=== PATIENT | male | born 1965 | race African-American/Black ===

== ENCOUNTER → 2017-01-31 | Day surgery (SDC) | payer OTHER ==
[~2017-01-31] VITALS: Ht 175.3 cm; Wt 89.8 kg
[~2017-01-31] MED LIST: ASPIRIN EC81 M1 PO; CRESTOR; DILTIAZEM; FARXIGA; GLIPIZIDE; METFORMIN HCL1000 M1 PO; MICARDIS HCT 81 EAC1 PO; PERCOCET 5-3251 EACH PO; SYMBICORT 16010.2 GM INH; VICTOZA 2-0.6 MG/0.1
--- NOTE | 2017-01-31 11:52 | Operative Report ---
Operative/Inv Procedure Report Surgery Date: 01/31/17 Name of Procedure: right ureteroscopy with laser lithotripsy, stent placement Pre-Operative Diagnosis: right kidney stone Post-Operative Diagnosis: same Estimated Blood Loss: less than 50ml Surgeon/Automatic Corn Grinder Operator: IMANI PLASCENCIA MD Anesthesia: laryngeal mask airway Drains: 6x26cm stent Specimens: stone fragments Complications: none Condition: stable Operative Indication: right kidney stone with renal colic Operative/Procedure Note Note: 51yo male with a hx of right kidney stone. He wanted to have it addressed osito. Discussed the options of ESWL as well as URS with laser lithotripsy. Explained the risks, benefits and alternatives of each procedure. Answered all questions. Patient was taken to the operating room and placed in the supine position. Time out was performed. IV antibiotics were infused. He was placed into the dorsal lithotomy position and prepped and draped in the standard sterile fashion. A cystoscopy was performed and the right side was cannulated with a sensor guidewire followed by a super stiff wire. A dark [place] stone looking object with a musocal tail was seen in the bladder. This was grasped and removed and sent to pathology. It was not certain whether this was a stone identified on the CT scan so the ureteroscopy was still performed. A 35cm ureteral access sheath was placed over the superstiff wire. A flexible ureteroscope was placed and the calyces were examined sequentially from the upper to lower poles. The anatomy was unusual. The kidney stone was not identified. Retrograde pyelogram was performed to ensure the anatomy was delineated. No stones were seen in the calyces and no filling defect on flouroscopy. A 6x26 cm stent was left in place using the sensor wire. The stent was placed using the sensor wire. Flouroscopy showed the stent to be in good position. The bladder was emptied. Patient tolerated the procedure well. Findings: no right kidney stone stone looking object with a mucosal tail was seen in the bladder unusual renal anatomy with calyces that were diffiucult to enter. Discharge Disposition: PACU
--- NOTE | 2017-02-02 11:01 | RADIOLOGY REPORT ---
EXAMINATION: XR ABDOMEN/INTRAOPERATIVE FLUOROSCOPY CLINICAL INDICATION: Right ureteroscopy. COMPARISON: [facility] dated 01/17/[address] scan of the abdomen and pelvis dated 01/14/2017. TECHNIQUE/FINDINGS: Intraoperative fluoroscopy was provided for the performance of a right ureteroscopy. 39 spot films were obtained and are archived in PACS. There is opacification made of the right renal collecting system, which appears dilated. Please refer to operative notes for details of the procedure. FLUOROSCOPY TIME: 30 seconds. IMPRESSION: Administrative dictation for intraoperative fluoroscopy and image archiving in PACS. Please refer to operative notes for procedural detail.
== END ==
LOC: STS 04:06
DX: N20.0 Calculus of kidney (principal); Z87.442 Personal history of urinary calculi; I10 Essential (primary) hypertension; E11.9 Type 2 diabetes mellitus without complications; Z79.84 Long term (current) use of oral hypoglycemic drugs
CPT/HCPCS: 74000; C2617; J0131; J0690; J1100; J2250; J2405